=== PATIENT | male | born 1975 | race Caucasian/White ===

== ENCOUNTER 2022-06-11 12:06 | Emergency (ER) | payer OTHER, SELFPAY ==
[2022-06-11 12:41] VITALS: BMI 33.3
[2022-06-11 12:46] VITALS: BP 119/75; PULSE 82; RESP 18; TEMP 36.7; O2SAT 98
--- NOTE | 2022-06-11 13:49 | ECG_ITS ---
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 Measurements Intervals [place] Rate: 71 P: 57 IN: 175 QRS: 38 QRSD: 75 T: 171 QT: 384 QTc: 418 Interpretive Statements SINUS RHYTHM LOW QRS VOLTAGE IN PRECORDIAL LEADS [QRS DEFLECTION < 1.0 mV IN CHEST LEADS] ANTEROSEPTAL MYOCARDIAL INFARCTION , PROBABLY RECENT [40+ ms Q WAVE IN V1-V4] Diffuse nonspecific T wave changes INTERPRETATION BASED ON A DEFAULT AGE OF 40 YEARS No previous ECG available for comparison Electronically Signed On 06-11-2022 20:42:51 CDT by Tavares Mckeon M.D. [id number]
--- NOTE | 2022-06-11 13:49 | XRR_ITS ---
PROCEDURE INFORMATION: Exam: XR Chest Exam date and time: 06/11/2022 1:55 PM Age: 46 years old Clinical indication: Pain; Angina pectoris and left-sided; Additional info: Left cp TECHNIQUE: Imaging protocol: Radiologic exam of the chest. Views: 1 view. COMPARISON: No relevant prior studies available. FINDINGS: Lungs: Unremarkable. No consolidation. Pleural spaces: Unremarkable. No pleural effusion. No pneumothorax. Heart/Mediastinum: Unremarkable. No cardiomegaly. Bones/joints: Unremarkable. XR/XR chest 1V portable [id number] IMPRESSION: No acute findings.
[2022-06-11 14:22] LABS: Basophils # 0.1 10^3/uL (0.0-0.1); Basophils % 0.6 %; Eosinophils # 0.1 10^3/uL (0.0-0.8); Hematocrit 45.6 % (42.0-52.0); Hemoglobin 15.6 g/dL (11.7-16.6); Lymphocytes # 1.4 10^3/uL (0.8-4.8); Lymphocytes % 15.8 %; Mean Corpuscular HGB Conc 34.2 g/dL (30.0-36.0); Mean Corpuscular Hemoglobin 31.2 pg (28.0-34.0); Mean Corpuscular Volume 91.2 fl (80-94); Mean Platelet Volume 10.3 fL (7.4-10.4); Monocytes # 0.7 10^3/uL (0.2-0.9); Monocytes % 8.4 %; Neutrophils # 6.51 10^3/uL (1.8-7.7); Neutrophils % 73.6 %; Nucleated Red Blood Cells % 0 %; Platelet Count 254 10^3/cmm (130-400); Red Cell Distribution Width 12.2 % (12.1-15.1); White Blood Count 8.8 10^3/uL (4.0-10.0)
--- NOTE | 2022-06-11 14:33 | CT_ITS ---
WS: [id number] CT ABDOMEN PELVIS TECHNIQUE: Noncontrast CT of the abdomen and pelvis with coronal and sagittal reformatted images. CLINICAL INFORMATION: left upper quad pain COMPARISON: None. DLP: 852.[address] scans at [facility] use at least one of these dose optimization techniques: automated e xposure control; mA and/or kV adjustment per patient size (includes targeted exams where dose is matc hed to clinical indication); or iterative reconstruction. FINDINGS: Lung bases are well aerated. Diffuse fatty infiltration liver. Hepatomegaly. Noncontrast spleen is no rmal. Normal GE junction. Noncontrast pancreas appears normal. Adrenal glands are normal. No hydronep hrosis in either kidney. No obstructing renal or ureteral calculi. Normal gallbladder. No free fluid in the abdomen or pelvis. Normal sigmoid colon. No evidence of smal l or large bowel obstruction. Normal appendix in the RIGHT lower quadrant. Hypertrophic 000changes katerina mbar spine. CT/CT abdomen pelvis wo con [id number] IMPRESSION: 1. No acute findings in the abdomen or pelvis. 2. Hepatomegaly with diffuse fatty infiltration. 3. No obstructing renal or ureteral calculi. No hydronephrosis. 4. Normal appendix in the RIGHT lower quadrant. 5. Lung bases are well aerated.
--- NOTE | 2022-06-11 14:33 | W.ED.CHESTPA ---
HPI - Chest Pain General: Chief Complaint: Chest Pain Stated Complaint: Left side pain Time Seen by Provider: 06/11/22 13:48 Source: patient Mode of arrival: ambulatory Limitations: no limitations History of Present Illness: This patient was referred to the emergency department from the local [facility] clinic. The patient has been having some left upper abdomen pain for the last 2 weeks and there was concerns about a possible chest pain involvement so therefore he was referred to the emergency department. The patient tells me that he is not having any chest pain, shortness of breath exertional chest pain dyspnea etc. He states he has pains in his left upper abdomen just inferior to his rib cage which is been present approximately 2 weeks. He denies any known injury. He states he has had a couple of bouts of vomiting which he associates with this pain. He is not any blood in his stools, blood in his vomitus. He states he has been otherwise eating and drinking normally. He denies any history of any abdominal surgeries. He states that he has not done anything physically or exertional or otherwise put any pressure on that area to cause injury. He does have a history of back issues but he has never had the symptoms with his back. He denies any dysuria, etc. Interestingly while I asked the patient if you have any history of cardiovascular disease he denied that but then when the pharmacy staff was doing his medical reconciliation he told them that he was on Plavix and had had stents placed 2 years ago. But again he denied any exertional chest pain associated with his current presentation. Pain radiation: none Relieving factors: nothing Exacerbating factors: nothing Associated symptoms: Reports abdominal pain and vomiting; Deny dyspnea, fever(s), palpitations or syncope Risk Factors: Coronary artery disease risk factors: smoking history Review of Systems Const: Denies: fever(s) or chills Eyes: Denies: change in vision ENMT: Denies: odynophagia or nasal congestion Card: Denies: palpitations, syncope, pre-syncope, dyspnea on exertion or orthopnea Resp: Denies: dyspnea, productive cough or non-productive cough GI: Reports: abdominal pain and vomiting; Denies: hematemesis, diarrhea, hematochezia or melena : Denies: flank pain, difficulty urinating, dysuria or urinary frequency Musc: Denies: neck pain, back pain, extremity pain or extremity swelling Skin/Breast: Denies: rash Neuro: Denies: headache(s), numbness in extremities or weakness in extremities Endo: Denies: polyuria or polydipsia Eloy/Lymph: Reports: easy bruising Physical Exam Narrative: EXAM NARRATIVE: Is alert and cooperative. Const: COMMON NORMALS: no acute distress, patient oriented x3 and alert GENERAL APPEARANCE: cooperative, comfortable and well kempt NUTRITIONAL APPEARANCE: overweight HENMT: COMMON NORMALS: normocephalic, moist oral mucous membranes and oropharynx normal HEAD & SCALP: normocephalic FACE & SINUS: normal facial exam Eye: COMMON NORMALS: Equal, round and reactive pupils present, EOMs intact bilaterally and no scleral icterus PUPIL: Yes Equal, round and reactive pupils present Neck/C-Spine: COMMON NORMALS: full ROM, no lymphadenopathy, no meningeal signs, no JVD and Thyroid normal THYROID: Thyroid normal Chest: COMMONS NORMALS: normal inspection of the chest and normal palpation of entire chest wall Resp: COMMON NORMALS: normal respiratory effort, No retractions, No use of accessory muscles and clear to auscultation bilaterally AUSCULTATION: clear to auscultation bilaterally Cardio: COMMON NORMALS: no JVD, regular rate, regular rhythm, No murmurs present (Cardio) and Peripheral pulses 2+ throughout RATE: regular rate RHYTHM: regular rhythm PERIPHERAL PULSES: Peripheral pulses 2+ throughout GI: OTHER: Abdominal examination reveals no evidence of scars, ecchymosis, skin rash. He has tenderness to palpation his left upper quadrant which is somewhat reproduced and exacerbated by twisting to the left. No rebound, no guarding, no other signs of peritoneal irritation. No mass. : COMMON NORMALS: Yes no CVA tenderness BLADDER/KIDNEY EXAM: Yes no CVA tenderness Back/Pelvis: COMMON NORMALS: no CVA tenderness, thoracic and lumbar spine normal to inspection, no thoracic nor lumbar tenderness, thoraco-lumbar ROM normal and straight leg raise negative bilaterally Extremity: COMMON NORMALS: normal to inspection, full ROM, no calf tenderness and no pedal edema Neuro: COMMON NORMALS: patient oriented x3, moves all extremities, no focal motor deficits and no sensory deficits noted SENSORIUM/ORIENTATION: Yes alert MENINGEAL SIGNS: Yes no meningeal signs CRANIAL NERVES: Yes CN normal except as noted Psych: COMMON NORMALS: mental status grossly normal APPEARANCE: Yes well kempt Skin: COMMON NORMALS: no rashes or lesions noted, no wounds and turgor normal GENERAL SKIN EXAM: no rashes or lesions noted and turgor normal Course Reevaluation(s): Reevaluation #1: Patient has been observed in the emergency department with normal vital signs, no new or focal findings on repeat examination. He still has localized tenderness subcostally on the left which is exacerbated by twisting and turning of the trunk. No skin changes, rash, ecchymosis etc. I reviewed all his findings with him in detail. I also reviewed their implications and limitations but certainly no evidence at this time of any cardiovascular, cardiopulmonary cardiac intra-abdominal or other concerning worrisome emergency medical conditions today. Most consistent with likely musculoskeletal pain but that close follow-up is strongly recommended and warranted to include return precautions. He acknowledged this discussion. Time: 17:09 Vital Signs: Vital signs: Vital Signs Temperature 98.0 F 06/11/22 12:46 Pulse Rate 82 06/11/22 12:46 Respiratory Rate 18 06/11/22 12:46 Blood Pressure 119/75 06/11/22 12:46 Pulse Oximetry 98 06/11/22 12:46 Oxygen Delivery Me thod 06/11/22 12:46 MDM - Chest Pain Medical Decision Making [facility] subcostal pain on the left. No history of trauma, no history of associated exertional chest pain, cough, other associated symptoms. Evaluation today revealed clinically reproducible symptoms of pain and tenderness in the left subcostal margin without any other ancillary studies to support a ongoing emergency medical condition. Certainly does not suggest ACS, thromboembolic issues, pneumonia, intra-abdominal process etc. His EKGs are consistent with his prior history of stenting and cardiovascular disease however with his serial troponins being unremarkable certainly does not suggest ACS etc. at this time. Most consistent with likely functional or musculoskeletal pain and of advised him on all test results and we discussed return precautions which she acknowledged. Lab Data I reviewed the patient's lab results. : 06/11/22 14:12 06/11/22 14:12 Radiology Impressions Chest X-Ray 06/11/22 13:49 IMPRESSION: No acute findings. Abdomen/Pelvis CT 06/11/22 14:33 IMPRESSION: 1. No acute findings in the abdomen or pelvis. 2. Hepatomegaly with diffuse fatty infiltration. 3. No obstructing renal or ureteral calculi. No hydronephrosis. 4. Normal appendix in the RIGHT lower quadrant. 5. Lung bases are well aerated. Laboratory Results WBC 8.8 10^3/uL (4.0-10.0) 06/11/22 14:12 RBC 5.00 10^6/uL (4.1-5.3) 06/11/22 14:12 Hgb 15.6 g/dL (11.7-16.6) 06/11/22 14:12 Hct 45.6 % (42.0-52.0) 06/11/22 14:12 MCV 91.2 fl (80-94) 06/11/22 14:12 MCH 31.2 pg (28.0-34.0) 06/11/22 14:12 MCHC 34.2 g/dL (30.0-36.0) 06/11/22 14:12 RDW 12.2 % (12.1-15.1) 06/11/22 14:12 Plt Count 254 10^3/cmm (130-400) 06/11/22 14:12 MPV 10.3 fL (7.4-10.4) 06/11/22 14:12 Neut % (Auto) 73.6 % 06/11/22 14:12 Lymph % (Auto) 15.8 % 06/11/22 14:12 [place] % (Auto) 8.4 % 06/11/22 14:12 Eos % (Auto) 1.0 % 06/11/22 14:12 Baso % (Auto) 0.6 % 06/11/22 14:12 Neut # (Auto) 6.51 10^3/uL (1.8-7.7) 06/11/22 14:12 Lymph # (Auto) 1.4 10^3/uL (0.8-4.8) 06/11/22 14:12 [place] # (Auto) 0.7 10^3/uL (0.2-0.9) 06/11/22 14:12 Eos # (Auto) 0.1 10^3/uL (0.0-0.8) 06/11/22 14:12 Baso # (Auto) 0.1 10^3/uL (0.0-0.1) 06/11/22 14:12 Nucleated RBC % (auto) 0 % 06/11/22 14:12 Nucleated RBCs # 0.0 /100WBC 06/11/22 14:12 Sodium 138 mmol/L (136-145) 06/11/22 14:12 Potassium 4.3 mmol/L (3.5-5.1) 06/11/22 14:12 Chloride 104 mmol/L (98-107) 06/11/22 14:12 Carbon Dioxide 21 mmol/L (22-29) L 06/11/22 14:12 Anion Gap 17.3 (5-19) 06/11/22 14:12 BUN 14 mg/dL (6-20) 06/11/22 14:12 Creatinine 0.7 mg/dL (0.7-1.2) 06/11/22 14:12 GFR Calculation 120.9 mL/min (90-130) 06/11/22 14:12 Glucose 88 mg/dL (65-115) 06/11/22 14:12 Calculated Osmolality 286 mOsm/kg (285-295) 06/11/22 14:12 Calcium 9.0 mg/dL (8.5-10.5) 06/11/22 14:12 Total Bilirubin 0.8 mg/dL (0.15-1.2) 06/11/22 14:12 AST 20 U/L (0-40) 06/11/22 14:12 ALT 29 U/L (0-41) 06/11/22 14:12 Alkaline Phosphatase 66 U/L (40-130) 06/11/22 14:12 Troponin T Baseline 9 ng/L (0-15) 06/11/22 14:12 Troponin T 120 Minute 9.50 ng/L (0-15) 06/11/22 16:03 Total Protein 7.3 g/dL (6.6-8.7) 06/11/22 14:12 Albumin 4.2 g/dL (3.5-5.2) 06/11/22 14:12 Globulin 3.1 g/dL (1.3-4.6) 06/11/22 14:12 EKG Data EKG 1: I personally reviewed and interpreted this EKG as follows: Interpretation: This EKG was not initially available to me but I reviewed it in retrospect. It is ventricular rate of 71 bpm with normal intervals, normal axis. Does have some loss of anterior forces in the precordial leads and some nonspecific ST-T wave changes in V2 and V3. Computer over read as possible ST elevations. EKG 2: I personally reviewed and interpreted this EKG as follows: Interpretation: Second EKG this visit reveals ventricular rate of 76 bpm. Normal interval, normal axis consistent with sinus rhythm. Essentially unchanged from prior EKG this visit. Does have loss of anterior forces as previously noted with T wave inversions however no other acute changes and no change from this visit. No prior tracings available. Discharge Plan Discharge Patient Disposition: Home Clinical Impression: Musculoskeletal pain Condition: Stable Prescriptions: No Action atorvastatin 80 mg Tablet 40 mg PO QPM Plavix 75 mg Tablet 75 mg PO QAM Aspir-81 81 mg Tablet,Delayed Release (Dr/Ec) 81 mg PO BEDTIME indomethacin 50 mg Capsule 50 mg PO TID PRN (Reason: gout) Rx Instructions: administer with food or milk lisinopril 5 mg Tablet 2.5 mg PO QAM metoprolol tartrate 25 mg Tablet 12.5 mg PO BID Otezla 30 mg Tablet 30 mg PO BID Discharge Orders: Discharge ED (Routine); Ordered 06/11/22 Ordered By: Prashant Benitez Discharge Diet: Usual diet Discharge Activity: Resume usual activity Patient Instructions: Opioid Safety, Pain Management Activity Restrictions/Additional Instructions: As we discussed during your prolonged evaluation and observation in the emergency department there was no findings to suggest a serious cause of your symptoms. However should your symptoms persist, worsen or new symptoms develop return to this or the nearest part emergency department immediately. Continue all your usual medications as prescribed. Coding Level of Care Code ED Consulting Actuary for Vicky Pires Exam Comprehensive
[2022-06-11 14:42] LABS: Alanine Aminotransferase 29 U/L (0-41); Albumin Level 4.2 g/dL (3.5-5.2); Alkaline Phosphatase 66 U/L (40-130); Anion Gap 17.3 (5-19); Aspartate Amino Transferase 20 U/L (0-40); Blood Urea Nitrogen 14 mg/dL (6-20); Carbon Dioxide 21 mmol/L (22-29); Chloride 104 mmol/L (98-107); Creatinine Clr Calc Pharmacy 149.0487; Globulin 3.1 g/dL (1.3-4.6); Glomerular Filtration Rate 120.9 mL/min (90-130); Glucose 88 mg/dL (65-115); Osmolality Calculated 286 mOsm/kg (285-295); Potassium 4.3 mmol/L (3.5-5.1); Sodium 138 mmol/L (136-145); Total Bilirubin 0.8 mg/dL (0.15-1.2); Total Protein 7.3 g/dL (6.6-8.7)
[2022-06-11 14:43] LABS: Troponin(5th) Baseline 9 ng/L (0-15)
--- NOTE | 2022-06-11 15:49 | ECG_ITS ---
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 Measurements Intervals [place] Rate: 76 P: 62 [place]: 182 QRS: 48 QRSD: 79 T: 196 QT: 388 QTc: 437 Interpretive Statements SINUS RHYTHM LOW QRS VOLTAGE IN PRECORDIAL LEADS [QRS DEFLECTION < 1.0 mV IN CHEST LEADS] ANTEROSEPTAL MYOCARDIAL INFARCTION , OF INDETERMINATE AGE [40+ ms Q WAVE IN V1-V4] MODERATE T-WAVE ABNORMALITY, CONSIDER LATERAL ISCHEMIA [-0.1+ mV T-WAVE IN I/aVL/V5/V6] Compared to ECG 06/11/2022 12:48:14 T-wave abnormality now present Possible ischemia now present Myocardial infarct finding still present Electronically Signed On 06-11-2022 20:49:35 CDT by Tavares Mckeon M.D. [id number]
[2022-06-11 17:15] VITALS: BP 145/85; PULSE 66; RESP 16; O2SAT 98
== END 2022-06-11 17:22 | disposition home or self-care (01) ==
PROVIDERS: Emergency Provider Emergency Medicine
DX: R07.89 Other chest pain (principal); R10.12 Left upper quadrant pain; Z79.82 Long term (current) use of aspirin; Z79.02 Long term (current) use of antithrombotics/antiplatelets
CPT/HCPCS: 36415; 71045; 74176; 80053; 84484; 85025; 93005; 99285

== ENCOUNTER 2022-11-04 11:20 | Outpatient (CLI) | payer OTHER, SELFPAY ==
[2022-11-04 13:18] LABS: Basophils # 0.1 10^3/uL (0.0-0.1); Basophils % 0.6 %; Eosinophils # 0.2 10^3/uL (0.0-0.8); Eosinophils % 2.2 %; Hematocrit 46.3 % (42.0-52.0); Hemoglobin 15.9 g/dL (11.7-16.6); Lymphocytes # 1.8 10^3/uL (0.8-4.8); Lymphocytes % 20.4 %; Mean Corpuscular HGB Conc 34.3 g/dL (30.0-36.0); Mean Corpuscular Hemoglobin 30.7 pg (28.0-34.0); Mean Corpuscular Volume 89.4 fl (80-94); Mean Platelet Volume 10.6 fL (7.4-10.4); Monocytes # 0.8 10^3/uL (0.2-0.9); Monocytes % 9.2 %; Neutrophils # 5.99 10^3/uL (1.8-7.7); Neutrophils % 66.7 %; Nucleated Red Blood Cells % 0 %; Platelet Count 282 10^3/cmm (130-400); Red Blood Count 5.18 10^6/uL (4.1-5.3); Red Cell Distribution Width 12.5 % (12.1-15.1)
[2022-11-04 13:38] LABS: Alanine Aminotransferase 29 U/L (0-41); Albumin Level 4.4 g/dL (3.5-5.2); Alkaline Phosphatase 72 U/L (40-130); Anion Gap 18.1 (5-19); Aspartate Amino Transferase 21 U/L (0-40); Blood Urea Nitrogen 12 mg/dL (6-20); Calcium 9.2 mg/dL (8.5-10.5); Carbon Dioxide 22 mmol/L (22-29); Chloride 102 mmol/L (98-107); Globulin 2.6 g/dL (1.3-4.6); Glomerular Filtration Rate 103.2 mL/min (90-130); Glucose 99 mg/dL (65-115); Osmolality Calculated 286 mOsm/kg (285-295); Potassium 4.1 mmol/L (3.5-5.1); Sodium 138 mmol/L (136-145); Total Bilirubin 0.7 mg/dL (0.15-1.2)
[2022-11-04 14:07] LABS: Hepatitis A Antibody IgM Non-Reactive (Nonreactive); Hepatitis B Core AB, Total Non-Reactive (Nonreactive); Hepatitis B Surface AB 16.4 (11.5-1000); Hepatitis B Surface Antigen Non-Reactive (Nonreactive); Hepatitis C Virus Antibody Non-Reactive (Nonreactive)
[2022-11-04 14:12] LABS: HIV 1 & 2 Antibody Non-Reactive (Non-Reactiv); HIV 1 & 2 Antigen Non-Reactive (Non-Reactiv)
[2022-11-07 10:18] LABS: Quantiferon Mitogen >10.00 IU/mL; Quantiferon Nil 0.04 IU/mL; Quantiferon Plus TB1 0.07 IU/mL; Quantiferon Plus TB2 0.04 IU/mL; Quantiferon TB Gold NEGATIVE (NEGATIVE)
== END 2022-11-04 11:21 | disposition home or self-care (01) ==
PROVIDERS: Visit Provider Dermatology
DX: L40.0 Psoriasis vulgaris (principal); Z79.899 Other long term (current) drug therapy
CPT/HCPCS: 36415; 80053; 85025; 86480; 86705; 86706; 86709; 86803; 87340; 87806

== ENCOUNTER 2023-02-13 20:00 | Outpatient (CLI) | payer OTHER, SELFPAY | END 2023-02-13 20:01 | disposition home or self-care (01) | LOC: SLEEP 02-14 05:07 | PROVIDERS: Visit Provider Nurse Practitioner | DX: G47.33 Obstructive sleep apnea (adult) (pediatric) (principal) | CPT/HCPCS: 95810 ==

== ENCOUNTER 2023-07-31 18:27 | Emergency (ER) | payer OTHER, SELFPAY ==
[2023-07-31] VITALS (9 sets, daily range): BP systolic 129–191; BP diastolic 77–110; PULSE 93–107; RESP 16–20; TEMP 37.2; O2SAT 93–99; BMI 33.4
--- NOTE | 2023-07-31 18:29 | XRR_ITS ---
PROCEDURE INFORMATION: Exam: XR Right Hand Exam date and time: 07/31/2023 7:24 PM Age: 48 years old Clinical indication: Injury or trauma; Other: Dog bite; Other: Swollen TECHNIQUE: Imaging protocol: Radiologic exam of the right hand. Views: 3 or more views. COMPARISON: No relevant prior studies available. FINDINGS: Bones/joints: Comminuted displaced intra-articular fracture involving the base of the index finger distal phalanx. Soft tissues: Soft tissue swelling over the hand. Soft tissue swelling over the index finger with lacerations. XR/XR hand RT min 3V* [id number] IMPRESSION: 1. Soft tissue swelling over the hand. 2. Soft tissue swelling over the index finger with lacerations. 3. Comminuted displaced intra-articular fracture involving the base of the index finger distal phalanx.
--- NOTE | 2023-07-31 19:13 | ED_ITS ---
HPI - Extremity Problem General: Chief complaint: Extremity Problem,Nontraumatic Stated complaint: Rt hand Injury Time Seen by Provider: 07/31/23 18:34 Source: patient Mode of arrival: ambulatory Limitations: no limitations History of Present Illness: Patient presents here after a dog bite to the right index finger. He states the dog bite was the end of June he been on antibiotics but states the swelling is gotten much worse is having swollen right digit he states extremely painful he is having a hard time flexing it. He had an MRI today at the [facility] in [place] and was told he needed to be likely admitted. Associated symptoms: Deny chest pain, fever(s) or rash Review of Systems Const: Denies: fever(s), chills, body aches or change in appetite Eyes: Denies: blurry vision or eye discomfort ENMT: Denies: throat pain or dental pain Card: Denies: chest pain Resp: Denies: dyspnea GI: Denies: abdominal pain, nausea, vomiting or diarrhea : Denies: dysuria Musc: Reports: extremity pain; Denies: neck pain or back pain Skin/Breast: Denies: rash Neuro: Denies: headache(s) PFS ED PFSH: Medical History High risk medication use History of myocardial infarction Plaque psoriasis Psoriatic arthropathy Physical Exam Const: COMMON NORMALS: patient oriented x3 HENMT: COMMON NORMALS: normocephalic and atraumatic HEAD & SCALP: normocephalic and atraumatic Eye: COMMON NORMALS: Equal, round and reactive pupils present and EOMs intact bilaterally PUPIL: Yes Equal, round and reactive pupils present Neck/C-Spine: COMMON NORMALS: full ROM and supple Chest: COMMONS NORMALS: normal inspection of the chest Resp: COMMON NORMALS: normal respiratory effort Cardio: COMMON NORMALS: regular rate, regular rhythm and No murmurs present (Cardio) RATE: regular rate RHYTHM: regular rhythm Extremity: NARRATIVE EXTREMITY EXAM: Patient's right index finger is swollen painful to touch he has a difficult time with flexion with erythema Neuro: COMMON NORMALS: patient oriented x3, moves all extremities and no focal motor deficits Psych: COMMON NORMALS: mental status grossly normal, Normal thought process present and cooperative THOUGHT PROCESS: Normal thought process present Skin: COMMON NORMALS: no rashes or lesions noted and no wounds GENERAL SKIN EXAM: no rashes or lesions noted Course Vital Signs: Vital signs: Vital Signs Temperature 98.9 F 07/31/23 18:34 Pulse Rate 96 07/31/23 20:12 Respiratory Rate 18 07/31/23 20:12 Blood Pressure 154/110 07/31/23 20:12 Pulse Oximetry 95 07/31/23 20:12 Oxygen Delivery Me thod Room Air 07/31/23 20:12 MDM - Extremity (Nontraumatic) Medical Decision Making Patient presents here with right index finger infection along with flexor tenosynovitis likely from infected dog bite I did speak to [facility] will transfer there for higher level of care for hand specialty Medical Records I reviewed the patient's medical records. Lab Data I reviewed the patient's lab results. 07/31/23 19:24 07/31/23 19:24 Radiology Impressions Hand X-Ray 07/31/23 18:29 IMPRESSION: 1. Soft tissue swelling over the hand. 2. Soft tissue swelling over the index finger with lacerations. 3. Comminuted displaced intra-articular fracture involving the base of the index finger distal phalanx. Laboratory Results WBC 10.65 10^3/uL (3.29-11.43) 07/31/23 19:24 RBC 4.89 10^6/uL (3.85-5.65) 07/31/23 19:24 Hgb 14.70 g/dL (11.27-16.99) 07/31/23 19:24 Hct 43.3 % (37-53) 07/31/23 19:24 MCV 88.5 fl (82-101) 07/31/23 19:24 MCH 30.1 pg (27-33) 07/31/23 19:24 MCHC 33.9 g/dL (30-55) 07/31/23 19:24 RDW 12.9 % (12.1-15.1) 07/31/23 19:24 Plt Count 303 10^3/cmm (157-399) 07/31/23 19:24 MPV 10.5 fL (7.4-10.4) H 07/31/23 19:24 Neut % (Auto) 73.8 % 07/31/23 19:24 Lymph % (Auto) 17.8 % 07/31/23 19:24 [place] % (Auto) 5.4 % 07/31/23 19:24 Eos % (Auto) 1.5 % 07/31/23 19:24 Baso % (Auto) 0.7 % 07/31/23 19:24 Neut # (Auto) 7.87 10^3/uL (1.8-7.7) H 07/31/23 19:24 Lymph # (Auto) 1.9 10^3/uL (0.8-4.8) 07/31/23 19:24 [place] # (Auto) 0.6 10^3/uL (0.2-0.9) 07/31/23 19:24 Eos # (Auto) 0.2 10^3/uL (0.0-0.8) 07/31/23 19:24 Baso # (Auto) 0.1 10^3/uL (0.0-0.1) 07/31/23 19:24 Nucleated RBC % (auto) 0 % 07/31/23 19:24 Nucleated RBCs # 0.0 /100WBC 07/31/23 19:24 ESR 13 mm/hr (0-10) H 07/31/23 19:24 Sodium 143 mmol/L (136-145) 07/31/23 19:24 Potassium 4.3 mmol/L (3.5-5.1) 07/31/23 19:24 Chloride 108 mmol/L (98-107) H 07/31/23 19:24 Carbon Dioxide 19 mmol/L (22-29) L 07/31/23 19:24 Anion Gap 20.3 (5-19) H 07/31/23 19:24 BUN 15 mg/dL (6-20) 07/31/23 19:24 Creatinine 0.9 mg/dL (0.7-1.2) 07/31/23 19:24 GFR Calculation 89.7 mL/min (90-130) L 07/31/23 19:24 Glucose 167 mg/dL (65-115) H 07/31/23 19:24 Calculated Osmolality 301 mOsm/kg (285-295) H 07/31/23 19:24 Calcium 8.9 mg/dL (8.5-10.5) 07/31/23 19:24 Total Bilirubin 0.4 mg/dL (0.15-1.2) 07/31/23 19:24 AST 17 U/L (0-40) 07/31/23 19:24 ALT 19 U/L (0-41) 07/31/23 19:24 Alkaline Phosphatase 80 U/L (40-130) 07/31/23 19:24 C-Reactive Protein 3.4 mg/L (0.0-4.9) 07/31/23 19:24 Total Protein 7.3 g/dL (6.6-8.7) 07/31/23 19:24 Albumin 4.4 g/dL (3.5-5.2) 07/31/23 19:24 Globulin 2.9 g/dL (1.3-4.6) 07/31/23 19:24 All radiology interpretation(s) finalized by discharge Discharge Plan Discharge Patient Disposition: Xfer Short-Term Hosp Clinical Impression: Flexor tenosynovitis of finger Condition: Stable Prescriptions: No Action omeprazole 40 mg capsule,delayed release(DR/EC) 40 mg PO DAILY nitroglycerin 0.4 mg tablet, sublingual 0.4 mg sublingual Q5M PRN Rx Instructions: do not exceed 3 doses per episode gabapentin 100 mg capsule 100 mg PO TID baclofen 10 mg tablet 10 mg PO TID apremilast 30 mg tablet 30 mg PO BID triamcinolone acetonide 0.1 % ointment 1 applic topical BID Qty: 454 2RF Rx Instructions: Apply to affected area twice daily for 2 weeks alternating with clobetasol. Not for face. clobetasol 0.05 % ointment 1 applic topical BID 14 Days Qty: 60 1RF Rx Instructions: to affected areas no more than 2 weeks/mo prn alternating with triamcinolone Taltz Autoinjector (2 Pack) 80 mg/mL auto-injector 80 mg SUBCUT ONCE Qty: 2 4RF Rx Instructions: Inject 160mg (2 syringes) subcutaneous as a loading dose then 80mg (1 syringe) q 2 weeks x12 weeks Taltz Autoinjector 80 mg/mL auto-injector 80 mg SUBCUT .[id number] Qty: 2 6RF Rx Instructions: Inject 80mg (1 syringe) subcutaneous q 4weeks atorvastatin 80 mg Tablet 40 mg PO QPM Plavix 75 mg Tablet 75 mg PO QAM Aspir-81 81 mg Tablet,Delayed Release (Dr/Ec) 81 mg PO BEDTIME indomethacin 50 mg Capsule 50 mg PO TID PRN (Reason: gout) Rx Instructions: administer with food or milk lisinopril 5 mg Tablet 2.5 mg PO QAM metoprolol tartrate 25 mg Tablet 12.5 mg PO BID Referrals: Franchesca Arteaga FNP [Primary Care Provider] - Coding Level of Care Code ED Simplex Printer Installer for Vicky Pires
[2023-07-31] MEDS: vancomycin 1,000 MG in sodium chloride 0.9% 250 ML 250 MG IV (19:33)
[2023-07-31 19:48] LABS: Basophils # 0.1 10^3/uL (0.0-0.1); Basophils % 0.7 %; Eosinophils # 0.2 10^3/uL (0.0-0.8); Eosinophils % 1.5 %; Hematocrit 43.3 % (37-53); Lymphocytes # 1.9 10^3/uL (0.8-4.8); Lymphocytes % 17.8 %; Mean Corpuscular HGB Conc 33.9 g/dL (30-55); Mean Corpuscular Hemoglobin 30.1 pg (27-33); Mean Corpuscular Volume 88.5 fl (82-101); Mean Platelet Volume 10.5 fL (7.4-10.4); Monocytes # 0.6 10^3/uL (0.2-0.9); Monocytes % 5.4 %; Neutrophils # 7.87 10^3/uL (1.8-7.7); Neutrophils % 73.8 %; Nucleated Red Blood Cells % 0 %; Platelet Count 303 10^3/cmm (157-399); Red Blood Count 4.89 10^6/uL (3.85-5.65); Red Cell Distribution Width 12.9 % (12.1-15.1); White Blood Count 10.65 10^3/uL (3.29-11.43)
[2023-07-31 19:50] LABS: Alanine Aminotransferase 19 U/L (0-41); Albumin Level 4.4 g/dL (3.5-5.2); Alkaline Phosphatase 80 U/L (40-130); Blood Urea Nitrogen 15 mg/dL (6-20); C Reactive Protein 3.4 mg/L (0.0-4.9); Calcium 8.9 mg/dL (8.5-10.5); Carbon Dioxide 19 mmol/L (22-29); Chloride 108 mmol/L (98-107); Globulin 2.9 g/dL (1.3-4.6); Glomerular Filtration Rate 89.7 mL/min (90-130); Glucose 167 mg/dL (65-115); Osmolality Calculated 301 mOsm/kg (285-295); Sodium 143 mmol/L (136-145); Total Bilirubin 0.4 mg/dL (0.15-1.2); Total Protein 7.3 g/dL (6.6-8.7)
[2023-07-31 20:06] LABS: Anion Gap 20.3 (5-19); Potassium 4.3 mmol/L (3.5-5.1)
[2023-07-31 20:07] LABS: Aspartate Amino Transferase 17 U/L (0-40)
[2023-07-31 20:19] LABS: Erythrocyte Sedimentation Rate 13 mm/hr (0-10)
[2023-07-31] MEDS: hyDRALAzine 20 mg/mL INJ 1 mL 10 MG IVP (21:38)
[2023-08-01 00:06] VITALS: BP 179/133; PULSE 98; RESP 18; O2SAT 98
[2023-08-01 00:40] VITALS: BP 160/105; PULSE 99; RESP 18; O2SAT 97
[2023-08-01 01:06] VITALS: BP 143/87; PULSE 87; RESP 20; O2SAT 95
== END 2023-08-01 01:25 | disposition short-term general hospital (02) ==
PROVIDERS: Emergency Provider Emergency Medicine; PCP Nurse Practitioner
DX: M65.841 Other synovitis and tenosynovitis, right hand (principal); Z79.02 Long term (current) use of antithrombotics/antiplatelets; Z79.82 Long term (current) use of aspirin; S62.610A Displaced fracture of proximal phalanx of right index finger, initial encounter for closed fracture; W54.0XXA Bitten by dog, initial encounter; I25.2 Old myocardial infarction
CPT/HCPCS: 73130; 80053; 85025; 85651; 86140; 96365; 96366; 96375; 99284; A6446; J0360; J3370; J7050

== ENCOUNTER 2023-09-25 08:45 | Outpatient (CLI) | payer OTHER, SELFPAY ==
--- NOTE | 2023-09-25 08:56 | XR_ITS ---
WS: [id number] Sinus series, 4 views, 09/25/2023 Clinical Data: RHINITIS Comparison: None. Findings: There is mucosal thickening of the right maxillary sinus. There are no air-fluid levels. No bone dest ruction is seen. The orbits are intact. There are no facial fractures. The sella turcica is normal. Impression: Probable chronic right maxillary sinusitis.
== END 2023-09-25 08:46 | disposition home or self-care (01) ==
PROVIDERS: PCP Nurse Practitioner; Visit Provider Nurse Practitioner Family
DX: J31.0 Chronic rhinitis (principal)
CPT/HCPCS: 70220

== ENCOUNTER → 2024-02-11 10:59 | Outpatient (BNVA) | payer OTHER, SELFPAY | PROVIDERS: PCP Nurse Practitioner; Referring Provider Nurse Practitioner; Visit Provider Specialist | DX: S53.105A Unspecified dislocation of left ulnohumeral joint, initial encounter; X58.XXXA Exposure to other specified factors, initial encounter | CPT/HCPCS: 73080; 99204 ==

== ENCOUNTER → 2024-08-12 12:16 | Outpatient (BNVA) | payer OTHER, SELFPAY | PROVIDERS: PCP Nurse Practitioner; Visit Provider Internal Medicine | DX: R07.9 Chest pain, unspecified (principal); I25.10 Atherosclerotic heart disease of native coronary artery without angina pectoris; F17.200 Nicotine dependence, unspecified, uncomplicated | CPT/HCPCS: 93005; 99204 ==

== ENCOUNTER 2024-09-09 07:25 | Outpatient (CLI) | payer OTHER, SELFPAY ==
[2024-09-09 07:53] VITALS: BMI 33.4
--- NOTE | 2024-09-09 08:03 | NMCV_ITS ---
NM vinay perf SPECT r/s* [id number] Yrn Frank Age: 49 Gender: M : 1975 Exam Date: 09/09/2024 08:37 Ordering Phys: Leo Schroeder M.D ([email or web address]) Technologist: SHOSHANA Winslow Exam Location: [facility] Indications: CP STRESS TEST [facility] IMAGE PROTOCOL Rest/Stress 1 Lexiscan Day Radiopharmaceutical Dose (mCi) Administration Site Administered by Rest: Tc-99m 10.8 IV SHOSHANA Winslow Sestamibi Stress:Tc-99m 32.4 IV SHOSHANA Alfaro Sestamibi Rest: 09-Sep-2024 45 Discovery 630 Stress: 09-Sep-2024 30 Discovery 630 0.4mg Lexiscan. Images obtained in supine and prone position. SPECT RESULTS Technical Quality: Good Raw Data Analysis: Normal Image Corrections: No attenuation or motion correction applied Summed Stress Score: 37 Summed Rest Score: 35 Summed Difference Score: 2 PERFUSION FINDINGS Large areas of mostly fixed perfusion defect seen in apical, mid anterior, septal, inferior and inferolateral apical lateral rene. This is consistent with large area of prior infarct in all 3 coronary artery distributions with small areas of elena-infarct ischemia in these territories. . FUNCTIONAL RESULTS (calculated via Gated SPECT) Stress Image LV EF (%): 45 Stress EDV (mL):120 TID: 1 Stress ESV (mL):66 FUNCTIONAL FINDINGS: LV systolic function is mild to moderately reduced with EF of 45% IMPRESSIONS 1. Abnormal myocardial perfusion imaging with large areas of prior infarcts seen all 3 coronary artery territories. Small areas of elena-infarct ischemia seen in these vessel distributions. 2. LV systolic function is mild to moderately reduced. Leo Schroeder MD (Electronically Signed) Final Date: 09 September 2024 10:40 S
--- NOTE | 2024-09-09 08:03 | ECG_ITS ---
[employer] Test Date: 2024-09-09 Pat Name: Yrn Frank Department: Room: Gender: Male Learning Support Aide: : 1975 Requested By: Leo Schroeder Order Number: [id number] Wynn MD: Leo Schroeder M.D. Interpretive Statements LEXISCAN SESTAMIBI STRESS TEST Procedure: At the baseline, the blood pressure was 129/81 mmHg with a heart rate of 81 bpm. The electrocardiogram showed normal sinus rhythm, Q waves in septal leads and T wave inversions in leads V3-V6 The Lexiscan was infused over a period of 20 seconds. A total of 0.4 mg of Lexiscan was infused. The stress phase was continued for a total of 5 minutes. Heart rate was at the end of stress phase was 98 bpm and a blood pressure of 138/81 mmHg. The EKG at the peak infusion revealed normal sinus rhythm with no significant ST-T wave changes. Sestamibi was injected 20 seconds after the Lexiscan infusion. Blood pressure at the end of recovery phase was 137/89 mmHg with a heart rate of 97 bpm. Conclusion: 1. Normal EKG response to Lexiscan infusion 2. No Lexiscan induced chest pain or cardiac arrhythmia. 3. Normal blood pressure and heart rate response. 4. Sestamibi/sestamibi perfusion scan pending; see separate report. Electronically Signed On 09-09-2024 10:15:56 SEWAGE SCREEN OPERATOR by Leo Schroeder M.D. [id number]
[2024-09-09] MEDS: regadenoson 0.4 Mg/5 ml Syringe IVP (09:00)
[2024-09-09 09:18] VITALS: BP 137/89; PULSE 98
--- NOTE | 2024-09-09 12:00 | USCV_ITS ---
Yrn Frank Age: 49 Gender: M : 1975 Exam Date: 09/09/2024 10:44 Ordering Phys: Leo Schroeder M.D ([email or web address]) Technologist: [place] [facility] [place]: cp BP: 140 / 0 HR: 89 Rhythm: Sinus Technical Quality: Adequate MEASUREMENTS (Male / Female) Normal Values 2D ECHO LV Diastolic Diameter PLAX 5.8 cm 4.2 - 5.9 / 3.9 - 5.3 cm IVS Diastolic Thickness 0.9 cm 0.6 - 1.0 / 0.6 - 0.9 cm IVS Systolic Thickness 2.2 cm LVPW Diastolic Thickness 1.6 cm 0.6 - 1.0 / 0.6 - 0.9 cm LVPW Systolic Thickness 2.3 cm LVOT Diameter 2.0 cm LV Ejection Fraction 2D Teich 60.1 % LV Ejection Fraction MOD 4C 58.5 % LV Ejection Fraction MOD 2C 60.3 % LV Ejection Fraction 2C AL 62.0 % LA Diameter 3.3 cm RA Systolic Volume 4C AL 22.5 ml RA Systolic Volume 4C MOD 22.0 ml LA Sys Volume AL 28.5 cm cubed LA Sys Volume Index AL 12.7 cm cubed/m squared Aorta at Sinotubular Diameter 1.8 cm M-MODE LA Ao Ratio MM 1.3 AV Cusp Separation MM 1.6 cm DOPPLER AV Peak Velocity 123.0 cm/s LVOT Peak Velocity 124.0 cm/s AV Area Cont Eq vti 3.1 cm squared AV Area Cont Eq pk 3.2 cm squared MV Peak Velocity 89.0 cm/s MV Area PHT 3.4 cm squared Mitral E to A Ratio 1.0 TR Peak Velocity 116.0 cm/s TR Peak Gradient 5.4 mmHg TR Mean Velocity 97.0 cm/s TR Mean Gradient 4.0 mmHg TR Velocity Time Integral 32.4 cm TV Peak E Velocity 55.0 cm/s PV Peak Velocity 118.0 cm/s RV Ejection Time 0.3 s FINDINGS Left Ventricle Technically limited quality echocardiogram because of poor ultrasonic windows. Grossly LV systolic function is normal. Regional wall motion abnormalities cannot be assessed because of poor quality images Right Ventricle Grossly normal Right Atrium Normal in size Left Atrium Normal in size Mitral Valve Structurally normal mitral valve. Mild mitral regurgitation. Aortic Valve Structurally normal aortic valve. No significant stenosis or regurgitation. Tricuspid Valve Mild tricuspid regurgitation. Insufficient TR jet to evaluate RVSP Pulmonic Valve Not well visualized Pericardium Normal Aorta Normal in size IVC Not well visualized CONCLUSIONS Technically limited quality echocardiogram because of poor ultrasonic windows. Grossly LV systolic function is normal. Mild mitral regurgitation Mild tricuspid regurgitation No comparison studies are available. Leo Schroeder MD (Electronically Signed) Final Date: 11 September 2024 18:31 S
== END 2024-09-09 07:26 | disposition home or self-care (01) ==
PROVIDERS: PCP Nurse Practitioner; Visit Provider Internal Medicine
DX: R07.9 Chest pain, unspecified (principal); R06.02 Shortness of breath; I24.89 Other forms of acute ischemic heart disease
CPT/HCPCS: 36415; 78452; 93017; 93306; 96374; A9500; J2785

== ENCOUNTER → 2025-03-02 13:38 | Outpatient (BNVA) | payer OTHER, SELFPAY | PROVIDERS: PCP Nurse Practitioner; Visit Provider Internal Medicine | DX: I25.118 Atherosclerotic heart disease of native coronary artery with other forms of angina pectoris (principal); Z79.02 Long term (current) use of antithrombotics/antiplatelets; Z79.82 Long term (current) use of aspirin; F17.200 Nicotine dependence, unspecified, uncomplicated; Z95.5 Presence of coronary angioplasty implant and graft; I25.2 Old myocardial infarction | CPT/HCPCS: 99214 ==

== ENCOUNTER 2025-08-09 07:54 | Outpatient (RCR) | payer OTHER, SELFPAY | END 2025-08-21 23:59 | disposition home or self-care (01) | LOC: WPT 07:54 | PROVIDERS: Visit Provider Nurse Practitioner | DX: M17.11 Unilateral primary osteoarthritis, right knee (principal) | CPT/HCPCS: 97110; 97112; 97161; L1812 ==

== ENCOUNTER 2025-08-10 13:53 | Emergency (ER) | payer OTHER, SELFPAY ==
[2025-08-10 13:55] VITALS: BP 123/83; PULSE 117; RESP 18; TEMP 37.1; O2SAT 97; BMI 33.0
--- NOTE | 2025-08-10 14:11 | ED_ITS ---
HPI - General Adult 2 General: Chief complaint: General Medical Stated complaint: abn labs (sent by NH) Time Seen by Provider: 08/10/25 14:01 Source: patient Mode of arrival: ambulatory Limitations: no limitations History of Present Illness: 50-year-old male states over the last 2 to 3 weeks been having some increasing weakness along with polydipsia and polyuria states has been seen today at the NH and had an elevated glucose. States that he has been prediabetic in the past glucose here is 580. He denies any vomiting denies any diarrhea denies any recent illness or fevers Related Data Home Medications ?Medication ?Instructions ?Recorded ?Confirmed aspirin 81 mg tablet,delayed 81 mg PO BEDTIME 06/11/22 03/02/25 release clopidogrel 75 mg tablet (Plavix) 75 mg PO QAM 2 03/02/25 Previous Rx's ?Medication ?Instructions ?Recorded nitroglycerin 0.4 mg sublingual 0.4 mg sublingual Q5M PRN chest 03/02/25 tablet pain #20 tabs metformin 500 mg tablet 500 mg PO BID #60 tabs 08/10 Allergies Allergy/AdvReac Type Severity Reaction Status Date / Time No Known Allergies Allergy Verified 03/02/25 13:40 FOR[facility]LY [facility], [facility]1983 ED 2 PFS: Medical History (Updated 08/10/25 @ 15:55 by Terence Fall MD) History of myocardial infarction Plaque psoriasis Psoriatic arthropathy High risk medication use Surgical History History of coronary artery stent placement Social History Smoking and tobacco/nicotine status: current every day tobacco/nicotine user (occasional) Physical Exam 2 Const: COMMON NORMALS: no acute distress, patient oriented x3 and healthy appearing HENMT: COMMON NORMALS: normocephalic and atraumatic HEAD & SCALP: n ormocephalic and atraumatic Neck/C-Spine: COMMON NORMALS: full ROM and supple Chest: COMMONS NORMALS: normal inspection of the chest Resp: COMMON NORMALS: normal respiratory effort, No retractions, No use of accessory muscles and clear to auscultation bilaterally AUSCULTATION: clear to auscultation bilaterally Cardio: COMMON NORMALS: regular rhythm and No murmurs present (Cardio) R ATE: tachycardic RHYTHM: regular rhythm Extremity: COMMON NORMALS: normal to inspection and full ROM Neuro: COMMON NORMALS: patient oriented x3, moves all extremities and no focal motor deficits Psych: COMMON NORMALS: mental status grossly normal, Normal thought process present and cooperative THOUGHT PROCESS: Normal thought process present Skin: COMMON NORMALS: no rashes or lesions noted and no wounds GENERAL SKIN EXAM: no rashes or lesions noted Course 2 Vital Signs: Vital signs: Vital Signs Temperature 98.7 F 08/10/25 13:55 Pulse Rate 90 08/10/25 16:20 Respiratory Rate 18 08/10/25 15:54 Blood Pressure 128/80 08/10/25 16:20 Pulse Oximetry 98 08/10/25 16:20 Oxygen Delivery Me thod Room Air 08/10/25 15:54 MDM - General Adult Medical Decision Making Patient presents with hyperglycemia differential includes DKA, new onset diabetes. Did interpret patient's EKG here showed sinus tachycardia heart rate [address] elevation QRS 93 QTc 375. Patient's lab work does show hyperglycemia he has no anion gap no signs of DKA likely new onset diabetic. He is had no vomiting no diarrhea he feels much improved after IV fluids his glucose is improved to 369 as well. Will start him on metformin 500 mg twice daily [facility] 5 days return if worsening he understands agrees to plan. Medical Records I reviewed the patient's medical records. Lab Data I reviewed the patient's lab results. 08/10/25 14:21 08/10/25 14:21 Laboratory Results WBC 8.06 10^3/uL (3.29-11.43) 08/10/25 14:21 RBC 5.00 10^6/uL (3.85-5.65) 08/10/25 14:21 Hgb 15.20 g/dL (11.27-16.99) 08/10/25 14:21 Hct 42.7 % (37-53) 08/10/25 14:21 MCV 85.4 fl (82-101) 08/10/25 14:21 MCH 30.4 pg (27-33) 08/10/25 14:21 MCHC 35.6 g/dL (30-55) 08/10/25 14:21 RDW 12.6 % (12.1-15.1) 08/10/25 14:21 Plt Count 248 10^3/cmm (157-399) 08/10/25 14:21 MPV 10.9 fL (7.4-10.4) H 08/10/25 14:21 Neut % (Auto) 75.8 % 08/10/25 14:21 Lymph % (Auto) 15.3 % 08/10/25 14:21 [place] % (Auto) 6.8 % 08/10/25 14:21 Eos % (Auto) 0.9 % 08/10/25 14:21 Baso % (Auto) 0.6 % 08/10/25 14:21 Neut # (Auto) 6.11 10^3/uL (1.8-7.7) 08/10/25 14:21 Lymph # (Auto) 1.2 10^3/uL (0.8-4.8) 08/10/25 14:21 [place] # (Auto) 0.6 10^3/uL (0.2-0.9) 08/10/25 14:21 Eos # (Auto) 0.1 10^3/uL (0.0-0.8) 08/10/25 14:21 Baso # (Auto) 0.1 10^3/uL (0.0-0.1) 08/10/25 14:21 Nucleated RBC % (auto) 0 % 08/10/25 14:21 Nucleated RBCs # 0.0 /100WBC 08/10/25 14:21 Sodium 131 mmol/L (136-145) L 08/10/25 14:21 Potassium 4.0 mmol/L (3.5-5.1) 08/10/25 14:21 Chloride 93 mmol/L (98-107) L 08/10/25 14:21 Carbon Dioxide 23 mmol/L (22-29) 08/10/25 14:21 Anion Gap 19.0 (5-19) 08/10/25 14:21 BUN 17 mg/dL (6-20) 08/10/25 14:21 Creatinine 1.1 mg/dL (0.7-1.2) 08/10/25 14:21 GFR Calculation 70.6 mL/min (90-130) L 08/10/25 14:21 Glucose 591 mg/dL (65-115) H* 08/10/25 14:21 Calculated Osmolality 301 mOsm/kg (285-295) H 08/10/25 14:21 Calcium 8.8 mg/dL (8.5-10.5) 08/10/25 14:21 Total Bilirubin 0.7 mg/dL (0.15-1.2) 08/10/25 14:21 AST 37 U/L (0-40) 08/10/25 14:21 ALT 52 U/L (0-41) H 08/10/25 14:21 Alkaline Phosphatase 106 U/L (40-130) 08/10/25 14:21 Total Protein 7.4 g/dL (6.6-8.7) 08/10/25 14:21 Albumin 4.5 g/dL (3.5-5.2) 08/10/25 14:21 Globulin 2.9 g/dL (1.3-4.6) 08/10/25 14:21 All radiology interpretation(s) finalized by discharge EKG Data EKG 1: I personally reviewed and interpreted this EKG as follows: EKG interpretation date: 08/10/25 EKG interpretation time: 15:00 Interpretation: sinus tach hr [address] elevation qrs 93 qtc 375 Discharge Plan Discharge Patient Disposition: Home Clinical Impression: Hyperglycemia Condition: Stable Prescriptions: New metformin 500 mg tablet 500 mg PO BID Qty: 60 0RF No Action nitroglycerin 0.4 mg tablet, sublingual 0.4 mg sublingual Q5M PRN (Reason: chest pain) Qty: 20 3RF Rx Instructions: do not exceed 3 doses per episode Plavix 75 mg Tablet 75 mg PO QAM Aspir-81 81 mg Tablet,Delayed Release (Dr/Ec) 81 mg PO BEDTIME Discharge Orders: Discharge ED (Routine); Ordered 08/10/25 Ordered By: Terence Fall Referrals: Mell Lamb MD [Primary Care Provider, Family Practice] - 1-3 days Discharge Diet: Advance as tolerated Discharge Activity: Resume usual activity Patient Instructions: Hyperglycemia, Diabetes and Nutrition (ED) Print Language: Hungarian Coding Level of Care Code ED Senior Process Control Tech for [employer]
--- NOTE | 2025-08-10 14:12 | ECG_ITS ---
[employer] Test Date: 2025-08-10 Pat Name: Yrn Frank Department: Room: Gender: Male Analytical Tech: : 1975 Requested By: Terence Fall Order Number: [id number] Kingsley MD: Tavares Mckeon M.D. Measurements Intervals [place] Rate: 101 P: 59 SD: 186 QRS: 40 QRSD: 93 T: 33 QT: 317 QTc: 412 Interpretive Statements SINUS TACHYCARDIA WITH OCCASIONAL SUPRAVENTRICULAR PREMATURE COMPLEXES LOW QRS VOLTAGE IN PRECORDIAL LEADS [QRS DEFLECTION < 1.0 mV IN CHEST LEADS] ANTEROSEPTAL MYOCARDIAL INFARCTION , OF INDETERMINATE AGE [40+ ms Q WAVE IN V1-V4] Compared to ECG 08/12/2024 12:22:23 Sinus rhythm no longer present Myocardial infarct finding still present Electronically Signed On 08-10-2025 23:53:23 TONE ARTIST APPRENTICE by Tavares Mckeon M.D. [id number] [email or web address]
[2025-08-10] MEDS: insulin regular-human 100 units/1 mL 10 UNIT IVP (14:20)
[2025-08-10 14:31] LABS: Hematocrit 42.7 % (37-53); Hemoglobin 15.20 g/dL (11.27-16.99); Mean Corpuscular HGB Conc 35.6 g/dL (30-55); Mean Corpuscular Hemoglobin 30.4 pg (27-33); Mean Corpuscular Volume 85.4 fl (82-101); Nucleated Red Blood Cells % 0 %; Platelet Count 248 10^3/cmm (157-399); Red Blood Count 5.00 10^6/uL (3.85-5.65); White Blood Count 8.06 10^3/uL (3.29-11.43)
[2025-08-10 14:54] LABS: Alanine Aminotransferase 52 U/L (0-41); Albumin Level 4.5 g/dL (3.5-5.2); Alkaline Phosphatase 106 U/L (40-130); Anion Gap 19.0 (5-19); Aspartate Amino Transferase 37 U/L (0-40); Blood Urea Nitrogen 17 mg/dL (6-20); Calcium 8.8 mg/dL (8.5-10.5); Carbon Dioxide 23 mmol/L (22-29); Chloride 93 mmol/L (98-107); Globulin 2.9 g/dL (1.3-4.6); Osmolality Calculated 301 mOsm/kg (285-295); Potassium 4.0 mmol/L (3.5-5.1); Sodium 131 mmol/L (136-145); Total Protein 7.4 g/dL (6.6-8.7)
[2025-08-10 14:57] LABS: Glucose 591 mg/dL (65-115)
[2025-08-10 15:54] VITALS: BP 126/82; PULSE 101; RESP 18; O2SAT 96
[2025-08-10 16:20] VITALS: BP 128/80; PULSE 90; O2SAT 98
--- OUTSIDE RECORDS SUMMARY | 2025-08-10 16:46 | XMS_ITS | Data Portability ---
Author Organization [place] - [facility] [place], ADMIN Address [address] [place] [id number] Care Team Providers Care Hims Clerk Name Role Phone [facility] Provi mike Assessment Encounter Date Assessment Date Assessment LastModified by Organization Details LastModified Time 12/13/2021 12/13/2021 He will follow up in 3 months with echo. Jania Hernandez, acting as a scribe for Johanny Lara MD to document his verbalization of the History of Present Illness, Physical Exam, Assessment and Plan. Jania Aguero 12/13/2021 09:00 am, I Daly Lara MD, hereby attest I personally performed and dictated the services documented in the History of Present, Illness, Physical Exam, Assessment and Plan and agree the documentation accurately represents these services and the decisions I made. I also reviewed the documented the Past, Family, and Social History made changes and/or additions as needed. Daly Lara MD [email or web address] Not available 12/13/2021 10:01:24 03/18/2022 03/18/2022 He will follow up in 6 months. Jania Hernandez, acting as a scribe for Johanny Lara MD to document his verbalization of the History of Present Illness, Physical Exam, Assessment and Plan. Jania Aguero 03/18/2022 01:11 pm, I Daly Lara MD, hereby attest I personally performed and dictated the services documented in the History of Present, Illness, Physical Exam, Assessment and Plan and agree the documentation accurately represents these services and the decisions I made. I also reviewed the documented the Past, Family, and Social History made changes and/or additions as needed. Daly Lara MD Not available 03/18/2022 14:11:25 09/02/2022 09/02/2022 I, Ruben Corey , acting as a scribe for Johanny Lara MD to document his verbalization of the History of Present Illness, Physical Exam, Assessment and Plan. Ruben Corey 09/02/22 3:52 PM I Daly Lara MD, hereby attest I personally performed and dictated the services documented in the History of Present, Illness, Physical Exam, Assessment and Plan and agree the documentation accurately represents these services and the decisions I made. I also reviewed the documented the Past, Family, and Social History made changes and/or additions as needed. Daly Lara MD [email or web address] Not available 09/02/2022 16:52:19 Plan of Treatment Reminders Order Date Submit Date Provider Last Modified By Organization Details Last Modified Time Details Appointments None recorded. Lab None recorded. Referral None recorded. Procedures None recorded. Surgeries None recorded. Imaging SPECT, myocardial perfusion, multiple - exercise cardiolyte stress [id number] [place] [address] (Radiology), [address] [facility], [place], [address], 12:46:47 Medication Orders None recorded. Patient TargetsNo targets recorded. Patient Instructions Encounter Date Encounter Id Patient Instructions Last Modified By Organization Details Last Modified Time 12/13/2021 [id number] high blood pressure: care instructions [email or web address] Not available 12/16/2021 18:11:08 learning about high blood pressure hreddy Not available 12/16/2021 18:11:08 09/02/2022 [id number] chest pain: care instructions [email or web address] Not available 09/02/2022 21:15:00 Reason for Referral None Reported. Results Created Date Observation Date Name Description Value Unit Range Abnormal Flag Note LastModifiedBy Organization Detail LastModifiedTime 03/11/20 anneliese CAVANAUGHo gram No observ ation record ed. [email or web address] In-Office Order Internal Use Only DO Not Attach Compendium DO Not Attach Compendium, Do Not Delete/merge, [id number] 03/11/2022 11:51:31 03/20/20 22 03/11/2022 US, echoc ardio gram No observ ation record ed. BARCODE In-Office Order Internal Use Only DO Not Attach Compendium DO Not Attach Compendium, Do Not Delete/merge, [id number] 03/20/2022 09:52:05 03/28/20 22 03/11/2022 US, echoc ardio gram No observ ation record ed. BARCODE In-Office Order Internal Use Only DO Not Attach Compendium DO Not Attach Compendium, Do Not Delete/merge, [id number] 03/28/2022 12:36:42 Result Notes None recorded. Problems Name Problem SNOMED Code Status Onset Date Resolution Date Notes Provider Name and Address Organization Details Recorded Time Chest pain 81174220 Active 2021 Denise Nevarez LPN null, [place] - [facility] [place] 2 09:20:03 Essential hypertension 99825937 Active 2021 Denise Nevarez LPN [place], [place] [facility] [place] 2 09:24:42 Coronary arteriosclerosi s 44420277 Active 2021 Denise Nevarez LPN [place], [place] [facility] [place] 2 09:25:11 Problem Notes None recorded. Procedures Surgical History Date Name Laterality Status Provider Name and Address Organization Details Recorded Time 12/05/19 cardiac catheterization completed Denise Nevarez LPN [place] [facility] [place] 12/13/2021 09:27:22 Imaging Results None recorded. Procedure Notes None recorded. Medical Equipment None Reported. Allergies No known drug allergies Medications Name Sig Start Date Stop Date Status Note LastModified by Organization Details LastModified Time cyclobenzap rine 10 mg tablet TAKE 1 TABLET BY MOUTH THREE TIMES DAILY NEEDED FOR SPASM 03/18 completed Not Available Not Available Not Available amoxicillin 500 mg capsule TAKE 2 CAPSULES BY MOUTH NOW THEN 2 CAPSULES IN 8 HOURS, THEN ONE CAPSULE THREE TIMES DAILY UNTIL GONE 03/18 completed Not Available Not Available Not Available acetaminoph en 300 mg-codeine 30 mg tablet TAKE 1 TABLET BY MOUTH EVERY 6 HOURS WITH 600 MG IBUPROFEN (3 200 MG TABLETS OTC) NEEDED FOR PAIN AND SWELLING 03/18 completed Not Available Not Available Not Available Plavix 75 mg tablet Take 1 tablet every day by oral route as directed for 90 days. active Not Available Not Available No t Available Nitrostat 0.4 mg sublingual tablet PER PROTOCOL active Not Available Not Available No t Available Lipitor 40 mg tablet Take 1 tablet every day by oral route at bedtime for 90 days. active Not Available Not Available No t Available aspirin 81 mg chewable tablet Chew 1 tablet every day by oral route as directed for 90 days. active Not Available Not Available No t Available lisinopril 2.5 mg tablet Take 1 tablet every day by oral route as directed for 90 days. active Not Available Not Available No t Available metoprolol tartrate 25 mg tablet Take 0.5 tablets twice a day by oral route as directed for 90 days. active Not Available Not Available No t Available Vitals Date Recorded Body height Body mass index (BMI) Body weight Oxygen saturation Oxygen saturation in Arterial blood by Pulse oximetry Heart rate Systolic And Diastolic Provider Name and Address Organization Details Last Updated DateTime 2 172.72 cm 31.4 kg/m2 77482.7 5 g 98 % 98 % 88 /min 124/70 mm[Hg] Denise Nevarez LPN [address] 2 09:19:21 Date Recorded Body height Body mass index (BMI) Body weight Oxygen saturation Oxygen saturation in Arterial blood by Pulse oximetry Heart rate Systolic And Diastolic Provider Name and Address Organization Details Last Updated DateTime 2 172.72 cm 31.8 kg/m2 38016.8 1 g 98 % 98 % 78 /min 104/70 mm[Hg] Brittney Dennison LPN [address] 2 12:51:10 Date Recorded Body height Body mass index (BMI) Body weight Heart rate Oxygen saturation Oxygen saturation in Arterial blood by Pulse oximetry Heart rate Respiratory rate Systolic And Diastolic Provider Name and Address Organization Details Last Updated DateTime 2 172.72 cm 34.4 kg/m2 965273. 59 g 102 /min 97 % 97 % 102 /min 16 /min 118/78 mm[Hg] oly Garcia [address] 2 14:43:26 Social History Question Answer Notes LastModified by Organizat ion Details LastModified Time Tobacco Smoking Status Former Smoker Denise Nevarez LPN [address] 12/13/2021 09:26:55 What Is Your Current Pack Years? 30ormorepack years Information not available 12/13/2021 Sex: Unknown Functional Status Question Answer Note LastModified by Organizat ion Details LastModified Time Do you use any illicit or recreational drugs? No Information not available 12/13/2021 What is your level of alcohol consumption? None Information not available 12/13/2021 Mental Status None recorded. Family History Nothing Reported. Medical History Condition Response ARTHRITIS N HEADACHES N RHEUMATIC FEVER N USE OF BLOOD THINNERS Y STROKE N MURMUR N HEART ATTACK Y DIABETES N HIGH CHOLESTEROL Y PERIPHERAL VASCULAR DISEASE N COPD N BLOOD CLOTS N HEPATITIS / LIVER DISEASE N ASTHMA N PULMONARY DISEASE N CAROTID BLOCKAGE N SEIZURES N HAVE YOU BEEN HOSPITALIZED OR SEEN IN [facility] IN THE PAST YEAR ? Y HERPES N THYROID DISEASE N ATHEROSCLEROSIS N ANEMIA N VASCULAR DISEASE N DIZZINESS N GERD / HEARTBURN / REFLUX N LUNG DISORDER N HYPERTENSION Y CARDIAC ARRHYTHMIA N HIV / AIDS N ANXIETY DISORDER N ANEMIA/BLOOD DISORDER N ANEURYSM N PULMONARY EMBOLISM N HEART DISEASE Y CORONARY ARTERY DISEASE Y CANCER N Past Encounters Encounter ID Performer Location Encounter Start Date Encounter Closed Date Diagnosis/Indication Diagnosis SNOMED-CT Code Diagnosis ICD10 Code Diagnosis IMO Codes Diagnosis Note [id number] TYLER LARA MD [employer] [address] [address] 12/13/2021 08:49:38 12/18/2021 11:40:33 Coronary arteriosclerosis 08955123 I25.10 S/p Non STEMI and LAD/RCA stenting. The pt is doing well. We will continue current meds and risk factor modificati on. LVEF was 61%. Essential hypertension 46161500 I10 B.p. is well controlled . Dyslipidemia 541310277 E 78.5 The patient will continue cardiac diet and the statin. [id number] TYLER LARA MD [employer] [facility] [address] [place] [address] [place] [address] 03/18/2022 11:54:06 03/19/2022 08:54:19 Coronary arteriosclerosis 60115019 I25.10 S/p Non STEMI and LAD/RCA stenting. The pt is doing well. We will continue current meds and risk factor modificati on. LVEF is normal. Essential hypertension 85520676 I10 B.p. is well controlled . Dyslipidemia 248677312 E 78.5 The patient will continue cardiac diet and the statin. [id number] TYLER LARA MD [facility] [facility] [address] [facility] [place] [address] 09/02/2022 13:25:47 09/02/2022 22:10:59 Coronary arteriosclerosis 55943930 I25.10 S/p Non STEMI and LAD/RCA stenting. We will continue current meds and risk factor modificati on. LVEF is normal. Essential hypertension 49872697 I10 B.p. is well controlled . Dyslipidemia 392621431 E 78.5 The patient will continue cardiac diet and the statin. Chest pain 09174624 R07. 9 The pt reports chest tightness occurring any time. Exercise cardiolite test is scheduled. Health Concerns Section Related Observation LastModified by Organization Detai ls LastModified Time None Recorded Concern Status LastModified by Organization Details LastModified Time None Recorded Advance Directives Directive None Recorded Payers Insurance Date Sequence Insurance Name Policy Number Policy Maldonado Covered Member ID Maldonado Member ID Guarantor Name 10/04/2022 [employer] [facility] [place] [facility] Pravin Frank [id number] Pravin Frank 03/11/2022 1 [employer] [facility] [employer] Pravin Frank [id number] Pravin Frank Notes Date Note Type Note Provider Name and Address Organization Details Recorded Time 12/13/2021 text/html Mr. Frank is a 46 year old gentleman, with a h/o hypertension, previous smoking, recent non STEMI requiring LAD and RCA stenting on 12/04/2021. Now, he feels well with no chest pain or any other symptoms. TYLER LARA MD [address] [facility], [place], [address], [facility] [place] 12/16/2021 18:11:50 03/18/2022 text/html Mr. Frank is a 46 year old gentleman, with a h/o hypertension, previous smoking, recent non STEMI requiring LAD and RCA stenting on 12/04/2021. Now, he feels well with no symptoms. Echo shows normal LVEF of 56 %. TYLER LARA MD [address] [place] [address], [phone], [facility] - [facility] [place] 03/18/2022 23:54:33 09/02/2022 text/html Mr. Frank is a 47 year old gentleman, with a h/o hypertension, previous smoking, previous non STEMI requiring LAD and RCA stenting on 12/04/2021. Echo previously showed normal LVEF of 56 %. The pt reports chest tightness occurring any time. Exercise cardiolite test is scheduled. TYLER LARA MD [address] [place] [address], [phone], [place] [facility] [place] 09/02/2022 21:15:23
--- OUTSIDE RECORDS SUMMARY | 2025-08-10 16:46 | XMS_ITS | Clinical Summary ---
Author Organization [facility] Address [address] [facility] [address] [place] [address] Phone Care Team Providers Care Second Worker Name Role Phone Marva Yoon Primary Care Provider Allergies No known active allergies Medications ALLOPURINOL ORAL Take by mouth. Activ e OTHER Otezla unknown dose Active aspirin (TOYIN CHEWABLE) 81 mg Tablet, Chewable every 24 hours. Acti ve atorvastatin (LIPITOR) 80 mg tablet Take 40 mg by mouth. 2 Active clopidogreL (PLAVIX) 75 mg Tablet Take 75 mg by mouth. 2 Active indomethacin (INDOCIN) 50 mg capsule Take 50 mg by mouth. 1 Active lisinopriL (PRINIVIL) 2.5 mg tablet every 24 hours. Acti ve metoprolol tartrate (LOPRESSOR) 25 mg tablet Take 12.5 mg by mouth. 2 Active nitroglycerin (NITROSTAT) 0.4 mg Tablet, Sublingual Nitrostat 0.4 mg sublingual tablet PER PROTOCOL Active omeprazole (PriLOSEC) 20 mg Capsule, Delayed Release(E.C.) Take 20 mg by mouth. 1 Active HYDROcodone-mayuri taminophen (NORCO) 5-325 mg tabletIndicatio ns:Infected dog bite of right index finger, initial encounter Take 1 Tablet by mouth every 4 hours as needed for Pain, Moderate. Max Daily Amount: 6 Tablets 20 Tablet 3 Active Active Problems Problem Noted Date Diagnosed Date Finger osteomyelitis, right 08/01/2023 Infected dog bite of right index finger 08/01/20 23 CAD (coronary atherosclerotic disease) Plaque psoriasis 08/01/2023 Osteomyelitis 07/31/2023 Social History Tobacco Use Types Packs/Day Years Used Date Smoking Tobacco: Never Smokeless Tobacco: Never Alcohol Use Standard Drinks/Week Comments Not Currently 0 (1 standard drink = 0.6 oz pur e alcohol) Feeling Safe Answer Date Recorded Are you in a relationship wi th someone who hurts you emotionally and/or physically? No 08/01/2023 Food Insecurity Answer Date Recorded Social/Environmental Concerns No concerns Transportation Needs Answer Date Record ed Social/Environmental Concerns No concerns Housing Stability Answer Date Recorded Social/Environmental Concerns No concerns Utility Needs Answer Date Recorded Social/Environmental Concerns No concerns Sex and Gender Information Value Date Recorded Sex Assigned at Not on file Legal Sex Male 10:11 AM [facility] Gender Identity Not on file Sexual Orientation Not on file Last Filed Vital Signs Vital Sign Reading Time Taken Comments Blood Pressure 136/82 09/08/2023 12:54 PM [facility] Pulse 93 08/04/2023 6:50 PM [facility] Temperature 36.3 C (97.3 F) 08/04/2023 6:08 PM [facility] Respiratory Rate 9 08/04/2023 6:50 PM [facility] Oxygen Saturation 96% 08/04/2023 6:50 PM [facility] Inhaled Oxygen Concentration - - Weight 87.5 kg (193 lb) 09/08/2023 12:54 PM [facility] Height 172.7 cm (5' 8 ) 09/08/2023 12:54 PM [facility] Body Mass Index 29.35 09/08/2023 12:54 PM [facility] Plan of Treatment Health Maintenance Due Date Last Done Comments HEPATITIS B VACCINES (1 of 3 - 19+ 3-dose series) 1993 01/31/2008, 12/24/2006, 11/12/2006 FIT-DNA Q 3 years 2019 FIT/FOBT Q 1 year 2019 Flex Sig/CT Colonography Q 5 years 2019 ZOSTER VACCINE (1 of 2) 2024 INFLUENZA VACCINE (#1) 2025 9, 07/26/2010, 06/14/2009 DTAP/TDAP/TD VACCINES (3 - T d or Tdap) 07/12/2031 07/12/2021, 07/12/2020, 09/22/2009 COLORECTAL SCREENING 02/12/2032 02/11/2022 Colorectal Cancer Screening 02/12/2032 Insurance [place] CC[place] [employer] Advance Directives For more information, please contact: [phone] * Full Code (Latest Code Status on File) Date Activated Date Inactivated Comments 08/04/2023 5:15 PM 08/05/2023 12:53 AM * Full Code Date Activated Date Inactivated Comments 08/01/2023 5:39 AM 08/04/2023 5:15 PM * Full Code Date Activated Date Inactivated Comments 02/11/2022 8:48 AM 02/11/2022 11:33 AM * Full Code Date Activated Date Inactivated Comments 02/11/2022 7:47 AM 02/11/2022 8:48 AM Care Teams Second Worker Relationship Specialty Start Date End Date Marva Yoon ARNP [address] [place] [id number] PCP - General NURSE PRACTITIONER 11/06/21
== END 2025-08-10 16:21 | disposition home or self-care (01) ==
PROVIDERS: Emergency Provider Emergency Medicine; PCP Family Medicine
DX: R73.9 Hyperglycemia, unspecified (principal); Z72.0 Tobacco use
CPT/HCPCS: 36415; 80053; 85025; 93005; 96361; 96374; 99284; J1815; J7030

== ENCOUNTER 2025-09-19 16:00 | Outpatient (RCR) | payer OTHER, SELFPAY | END 2025-09-21 23:59 | disposition home or self-care (01) | LOC: WPT 16:00 | PROVIDERS: PCP Family Medicine; Visit Provider Nurse Practitioner | DX: M17.11 Unilateral primary osteoarthritis, right knee (principal); I25.10 Atherosclerotic heart disease of native coronary artery without angina pectoris; R07.9 Chest pain, unspecified; E11.9 Type 2 diabetes mellitus without complications; Z79.84 Long term (current) use of oral hypoglycemic drugs; Z95.5 Presence of coronary angioplasty implant and graft; Z87.891 Personal history of nicotine dependence; I25.2 Old myocardial infarction | CPT/HCPCS: 97110; 97112; 97140; 97530; 99214 ==